=== PATIENT | female | born 1935 | race Caucasian/White ===

== ENCOUNTER 2017-10-24 05:55 | Observation (INO) | payer MEDICARE, OTHER ==
--- NOTE | 2017-10-11 14:48 | NUR ---
PATIENT HERE TODAY FOR PREADMISSION APPOINTMENT. SHE IS SCHEDULED FOR A RIGHT SHOULDER DARIO ARTHROPLASTY ON 10/24/17. AFTER SURGERY SHE IS PLANNING TO GO WITH HER DAUGHTER KARYNA TO [place] FOR RECOVERY AT HER DAUGHTERS HOME. THEY HAVE 4 STEPS INTO THE HOME AND NO STEPS INSIDE THE HOME. THERE IS A WALK IN SHOWER WITH BUILT IN BENCH AND MULTIPLE GRAB BARS IN THE BATHROOM. THIS INFORMATION WILL BE SENT TO DR SCOT RAY AND RI PLANNING FOR FURTHER FOLLOW UP.
--- NOTE | 2017-10-21 16:44 | NUR ---
LAB SODIUM 127 M RY FINAL ASSEMBLY AND PACKING SUPERVISOR CALLED AND PT TO GET LAB REDRAWN. CALL TO PT DAUGHTER AND WILL GET DRAWN TUESDAY AT 1500.
[~2017-10-24] VITALS: Ht 149.9 cm; Wt 54.4 kg
--- OUTSIDE RECORDS SUMMARY | ~2017-10-24 | XMS | Encounter Summary ---
Demographics + + + | Address | [address] | | | [place] [address] | + + + | Home Phone | | + + + | Preferred Language | Unknown | + + + | Marital Status | | + + + | Faith Affiliation | Unknown | + + + | Race | Unknown | + + + | Ethnic Group | Unknown | + + + Author + + + | Author | [facility] | | | and Rhettana | + + + | Organization | [facility] | | | and [place] | + + + | Address | Unknown | + + + | Phone | Unavailable | + + + Support + + +---------+ + | Name | Relationship | Address | Phone | + + +---------+ + | Janice Mccall | ECON | Unknown | | + + +---------+ + | Lynnette Mccall | ECON | Unknown | | + + +---------+ + Care Team Providers + +------+ + | Care Grading Supervisor Name | Role | Phone | + +------+ + | Esau Alvares MD | PCP | Unavailable | + +------+ + Reason for Visit + + + | Reason | Comments | + + + | Pulmonary Disease | 6 mo Follow-up/PFT | | Appointment | | + + + Encounter Details +--------+---------+ + + + | Date | Type | Department | Care Team | Description | +--------+---------+ + + + | 09/02/ | Office | [facility] | Noah Hopper, | Idiopathic pulmonary | | 2018 | Visit | PULMONARY [address] | [place] | fibrosis (HCC) | | | | [place], | [place], [place] | (Primary Dx) | | | | [place] [address] | [place] | | | | | [phone] | [address] | | | | | | | | +--------+---------+ + + + Social History + +-------+ +--------+------+ | Tobacco Use | Types | Packs/Day | Years | Date | | | | | Used | | + +-------+ +--------+------+ | Never Smoker | | | | | + +-------+ +--------+------+ + +---+---+---+ | Smokeless Tobacco: | | | | | Never Used | | | | + +---+---+---+ + + +---------+ + | Alcohol Use | Drinks/We | oz/Week | Comments | | | ek | | | + + +---------+ + | Yes | 7 | 4.2 | 03/04/17: "I have one glass of wine every | | | Glasses | | night" | | | of wine | | | + + +---------+ + + + + | Sex Assigned at | Date Recorded | | | | + + + | Not on file | | + + + as of this encounter Last Filed Vital Signs + + + + | Vital Sign | Reading | Time Taken | + + + + | Blood Pressure | 122/68 | 09/02/20173 PDT | + + + + | Pulse | 65 | 09/02/20173 PDT | + + + + | Temperature | - | - | + + + + | Respiratory Rate | - | - | + + + + | Oxygen Saturation | 98% | 09/02/20171122 PDT | + + + + | Inhaled Oxygen | - | - | | Concentration | | | + + + + | Weight | 57 kg (125 lb 10.6 | 09/02/20171122 PDT | | | oz) | | + + + + | Height | 151.1 cm (4' 11.5") | 09/02/2017 1123 PDT | + + + + | Body Mass Index | 24.96 | 09/02/20173 PDT | + + + + in this encounter Instructions Patient Instructions - Noah Hopper MD - 09/02/2017 1130 PDTFormatting of this note m ay be different from the original. Pulmonary Fibrosis What is pulmonary fibrosis? Pulmonary fibrosis is an interstitial lung disease. Interstitial lung diseasesare agrou p of conditions that cause inflammation and scarring around thetiny air sacs (alveoli) in the lungs. The scarring is called fibrosis. It causes the tissues in the lungs to get thick and stiff. This makes it hard to take in oxygen. Often the cause is unknown. This is called idiopathic pulmonary fibrosis. Normal lung Lung with pulmonary fibrosis What causes pulmonary fibrosis? Most of the time, healthcare providers don t know the cause of pulmonary fibrosis. Things that can increase your risk of getting pulmonary fibrosis are: Smoking Certain viral infections Pollution, such as silica and metal dusts, bacteria, and gases Certain medicines Genetics. More than one family member may have pulmonary fibrosis. Gastroesophageal reflux disease (GERD) What are the symptoms of pulmonary fibrosis? The symptoms of pulmonary fibrosis include: Difficulty breathing or shortness of breath Cough Chest pain Feeling tired Joint pain How is pulmonary fibrosis diagnosed? Your healthcare provider will ask about your health history and current symptoms. He or she will do a physical exam. You may need diagnostic tests, such as a chest X-ray, a CT scan of the lungs, and blood tests. Other tests may include: Lung function tests. These tests find out how well your lungs work. A common test issp irometry. Bronchoalveolar lavage.A bronchoalveolar lavage looks at cells from your lungs. It is done during a bronchoscopy. A brochoscope is a special tool that lets your healthcare provid e see inside your lungs. He or she can also use it to take small samples of tissue for testi ng. Lung biopsy. A small sample of lung tissue is taken and then looked at under a microscop e. A biopsy isdone during bronchoscopy or a surgical procedure. Exercise testing.These tests show how well your lungs work during exercise. How is pulmonary fibrosis treated? Pulmonary fibrosis can t be cured. Treatment can help control the disease and improve sym ptoms. Your healthcare provider will discuss possible treatments with you. These can include : Medicines.These can help reduce inflammation in the lungs. They also can suppress your body s immune system and help lessen scarring. Supplemental oxygen.This can help more oxygen get into your blood. Some people will ne ed to use oxygen all the time. Others will only need it when they sleep or exercise. Breathing techniques.These can help you cope with shortness of breath. Pulmonary rehabilitation.This is a program of exercise and education that can help you gain strength and independence. Date Last Reviewed: 01/08/201619996361-2759 [employer]. [address] [place] [address], [place] [address]. All righ ts reserved. This information is not intended as a substitute for professional medical care. Always follow your healthcare professional's instructions. in this encounter Progress Notes Noah Hopper MD - 09/02/2017 1130 PDTFormatting of this note may be different from th e original. Pulmonary Follow Up 09/02/2017 Magaly Mccall is a 82 y.o. female patient of Esau Alvares MD here today for follow up of pulmonary fibrosis. She notes no new medical issues since our last clinic appointment on 03/04/17. Some lighthe adedness with hot weather. PRN antihypertensive. Follow up PFTs were performed today. Currently Magaly's primary symptom is dyspnea. They do have a chronic cough in the evening. She does not note a change in their cough sin ce our last appointment. she do chronically produce sputum. They have not noted hemoptysi s since our last appointment. Magaly do report symptoms of shortness of breath. Currently Magaly is able to walk couple mi les at their own pace on level ground before developing dyspnea. Water aerobics at the pool and weights QOD. The distance walked is predominately limited by fatigue. Triggers for the ir shortness of breath include vigorous exertion and relieving factors include rest. She do not have symptoms of chest pain. The patient's weight has been stable since our last clinic appointment. Currently Magaly no maico no fever or chills. The patient's reflux symptoms are well controlled with daily omeprazole. Past Medical History Past Medical History: Diagnosis Date Acid reflux disease Anemia longstanding etiology unknown to patient Arthritis Atherosclerosis of aorta (HCC) Cellulitis of foot, left Chronic cough Fatty liver GERD (gastroesophageal reflux disease) Granuloma annulare Hypercholesterolemia diet and exercise Hypertension Idiopathic pulmonary fibrosis (HCC) 03/04/2017 Levoscoliosis Osteoporosis Ovarian carcinoma (HCC) 2014 chemo over 18 weeks Rash resolved Rib fracture 2010 right Whooping cough 1939 Allergies: Allergies Allergen Reactions Celecoxib Rash Penicillins Rash Lisinopril Other (See Comments) Cough Medications: Current Outpatient Prescriptions: alendronate (FOSAMAX) 70 mg tablet, 70 mg every 7 days., Disp: , Rfl: 12 aspirin 81 MG tablet, Aspirin 81 MG TABS TAKE 1 TABLET DAILY. Refills: 0 , CAMPUS AMBASSADOR; Ac tive, Disp: , Rfl: CALCIUM CITRATE-MG CITRATE-D PO, Take 1 capsule by mouth Daily., Disp: , Rfl: docusate sodium (STOOL SOFTENER) 100 mg capsule, Take 100 mg by mouth Daily., Disp: , Rfl: guaifenesin-codeine (TUSSI-ORGANIDIN NR) 100-10 MG/5ML syrup, Guaifenesin-Codeine 100- 10 MG/5ML Oral Syrup TAKE 5 ML EVERY 4 TO 6 HOURS NEEDED FOR COUGH. Quantity: 1; Refill s: 0 Esau Alvares MD; Started 14-Jun-2014 [id number] ML Bottle, Disp: , Rfl: metoprolol succinate (TOPROL-XL) 25 mg 24 hr tablet, Metoprolol Succinate ER 25 MG Ora l Tablet Extended Release 24 Hour TAKE ONE TABLET BY MOUTH EVERY DAY Quantity: 90; Refills : 2 Esau Alvares MD; Started 15-Feb-2008 Active, Disp: , Rfl: Multiple Vitamin (MULTI-VITAMIN) TABS, Multi-Vitamin Oral Tablet TAKE 1 TABLET DAILY. Refills: 0 , CAMPUS AMBASSADOR; Active, Disp: , Rfl: olmesartan (BENICAR) 20 mg tablet, 10mg daily half tablet, Disp: , Rfl: omeprazole (PRILOSEC) 20 mg capsule, Omeprazole 20 MG Oral Capsule Delayed Release JUAN E ONE CAPSULE BY MOUTH EVERY DAY Quantity: 90; Refills: 0 Esau Alvares MD; Started Active, Disp: , Rfl: Immunizations: Immunization History Administered Date(s) Administered INFLUENZA 65 Y OR >, TRIVALENT HIGH-DOSE 11/13/2015, 11/22/2016 PNEUMOCOCCAL CONJUGATE 13-VALENT (PCV13) 12/03/2014 PNEUMOCOCCAL POLYSACCHARIDE 23-VALENT (PPSV23) 03/05/1995, 02/20/2009 TDAP, (ADOL/ADULT) 02/20/2009 ZOSTER, 1 DOSE (ADULT) 01/14/2011 Objective BP 122/68 | Pulse 65 | Ht 1.511 m (4' 11.5") | Wt 57 kg (125 lb 10.6 oz) | SpO2 98% | BMI 24.96 kg/m General Appearance: Alert, cooperative, no distress, appears stated age. Head: Normocephalic, without obvious abnormality, atraumatic. Eyes: PERRL, conjunctiva/corneas clear. Nose: Nares normal, septum midline, mucosa normal, no drainage or sinus tenderness. Throat: Lips, mucosa, and tongue normal; teeth/dentures normal. Neck: Supple, symmetrical, no JVD. Lungs: No accessory muscle use, breath sounds reveal inspiratory crackles left greater th an right 1/[address] way up bilaterally. No wheezes or rhonchi. No dullness to percussion. Chest Wall: No tenderness or deformity. Heart: Regular rate and rhythm, S1, S2 normal, no murmur, rub or gallop. Extremities: Extremities normal, atraumatic, no cyanosis or clubbing. Edema none bilateral ly. Skin: Warm and dry. Lymph nodes: Cervical and supraclavicular nodes normal. Neurologic: Gait normal. Data: Lab Results Component Value Date AST 07/31/2013 Lab Results Component Value Date ALT 07/31/2013 PFTs(s) from 09/02/17 were reviewed today with the patient present. They show forced vital c apacity of 2.53, 126% of predicted with an FEV1/FVC of 76%. The uncorrected DLCO is 12.7, 7 0% of predicted. Walking oximetry performed 09/02/17. Resting O2 saturation was 99%. The patient desaturate d to 89% with walking 750 feet over 3 minutes. Assessment 1. Pulmonary fibrosis consistent with idiopathic pulmonary fibrosis/less likely chemothe rapy related pulmonary fibrosis. Over the last 12 months Magaly reports stable pulmonary sym ptomatology. Today Pulmicort function tests show normal/stable spirometry and improved/mild ly reduced diffusion capacity. Overall the patient's diffusion capacity has increased 13% c ompared to values from 03/04/17. The patient is not experiencing significant reflux symptoms. Magaly is not interested in anti-fibrotic therapy with agents such as Pirfenidone or Ofev. No significant oxygen desaturation. Plan 1. High-dose seasonal influenza vaccination was recommended for November 2017. 2. The interval between pulmonary clinic follow-up appointments will be lengthened to 12 m onths. 3. Spirometry, diffusion capacity and walking oximetry with follow-up. CC: Esau Alvares MDin this encounter Plan of Treatment + +--------+ + + | Name | Priori | Associated Diagnoses | Order Schedule | | | ty | | | + +--------+ + + | Pulmonary function test | GRAC[facility]A | Idiopathic | 1 Occurrences | | | | pulmonary fibrosis | starting 09/02/2017 | | | | (HCC) | until 09/02/2018 | + +--------+ + + as of this encounter Visit Diagnoses + + | Diagnosis | + + | Idiopathic pulmonary fibrosis (HCC) - Primary | + + | Idiopathic pulmonary fibrosis | + +
--- OUTSIDE RECORDS SUMMARY | ~2017-10-24 | XMS | Encounter Summary ---
Demographics + + + | Address | [address] | | | [place] [address] | + + + | Home Phone | | + + + | Preferred Language | Unknown | + + + | Marital Status | | + + + | Spiritism Affiliation | Unknown | + + + | Race | Unknown | + + + | Ethnic Group | Unknown | + + + Author + + + | Author | [facility] | | | and [place] | + + + | Organization | [facility] | | | and [place] | [...] Team Providers + +------+ + | Care Supervisor Net Making Name | Role | Phone | + +------+ + | Esau Alvares MD | PCP | Unavailable | + +------+ + Encounter Details +--------+ + + + + | Date | Type | Department | Care Team | Description | +--------+ + + + + | 07/27/ | Hospital | [facility] | Noah Hopper, | Idiopathic pulmonary | | 2018 | Encounter | MED CTR PULMONARY | [address] | fibrosis (HCC) | | | | FUNCTION [address] | [place], [address] | | | | | [place], | [place], [place] | | | | | [place] [address] | [address] | | | | | [phone] | | | +--------+ + + + + Social History + +-------+ [...] + + + as of this encounter Medications at Time of Discharge + + +-------+---------+ + + | Medication | Sig. | Disp. | Refills | Start | End Date | | | | | | Date | | + + +-------+---------+ + + | alendronate | 70 mg every 7 days. | | 12 | 07/27/19 | | | (FOSAMAX) 70 mg | | | | 17 | | | tablet | | | | | | + + +-------+---------+ + + | aspirin 81 MG | Aspirin 81 MG TABS | | | | | | tablet | TAKE 1 TABLET DAILY. | | | | | | | Refills: 0 | | | | | | | | | | | | | | | | | | | | | , ORCHESTRA DIRECTOR; Active | | | | | + + +-------+---------+ + + | CALCIUM CITRATE-MG | Take 1 capsule by | | | | | | CITRATE-D PO | mouth Daily. | | | | | + + +-------+---------+ + + | docusate sodium | Take 100 mg by mouth | | | | | | (STOOL SOFTENER) 100 | Daily. | | | | | | mg capsule | | | | | | + + +-------+---------+ + + | | Guaifenesin-Codeine | | | 06/15/19 | | | guaifenesin-codeine | 100-10 MG/5ML Oral | | | 15 | | | (TUSSI-ORGANIDIN NR) | SyrupTAKE 5 ML EVERY | | | | | | 100-10 MG/5ML syrup | 4 TO 6 HOURS | | | | | | | NEEDED FOR COUGH. | | | | | | | Quantity: 1; | | | | | | | Refills: 0 Dia, | | | | | | | Esau SMITH; Started | | | | | | | | | | | | | | ML Bottle | | | | | + + +-------+---------+ + + | metoprolol | Metoprolol Succinate | | | 02/14/19 | | | succinate | ER 25 MG Oral | | | 09 | | | (TOPROL-XL) 25 mg 24 | Tablet Extended | | | | | | hr tablet | Release 24 HourTAKE | | | | | | | ONE TABLET BY MOUTH | | | | | | | EVERY DAY Quantity: | | | | | | | 90; Refills: 2 Dia, | | | | | | | Esau SMITH; Started | | | | | | | [id number] | | | | | + + +-------+---------+ + + | Multiple Vitamin | Multi-Vitamin Oral | | | | | | (MULTI-VITAMIN) TABS | TabletTAKE 1 TABLET | | | | | | | DAILY. Refills: 0, | | | | | | | ORCHESTRA DIRECTOR; Active | | | | | | | | | | | | | |, ORCHESTRA DIRECTOR; Active | | | | | + + +-------+---------+ + + | olmesartan | 10mg daily half | | | 02/14/19 | | | (BENICAR) 20 mg | tablet | | | 09 | | | tablet | | | | | | + + +-------+---------+ + + | omeprazole | Omeprazole 20 MG | | | 02/14/19 | | | (PRILOSEC) 20 mg | Oral Capsule Delayed | | | 09 | | | capsule | ReleaseTAKE ONE | | | | | | | CAPSULE BY MOUTH | | | | | | | EVERY DAY Quantity: | | | | | | | 90; Refills: 0 Dia, | | | | | | | Esau SMITH; Started | | | | | | | [id number] | | | | | + + +-------+---------+ + + as of this encounter Plan of Treatment Not on fileas of this encounter Procedures + +--------+ + + + | Procedure Name | Priori | Date/Time | Associated Diagnosis | Comments | | | ty | | | | + +--------+ + + + | PFT PULMONARY | GRACIELA | 09/05/2017 | Idiopathic | Results for this | | FUNCTION TESTING | | 0627 PDT | pulmonary fibrosis | procedure are in the | | ORDERS | | | ([facility]) | results section. | + +--------+ + + + in this encounter Results Pulmonary function test spirometry w/diffusion; home oxygen evaluation (09/05/2017 0627) + + + | Narrative | Performed At | + + + | Noah | | | MD Ward 09/05/2017 6:30 PULMONARY FUNCTION TESTING | | | SPIROMETRY: The FVC was 2.53 L or 126 % of predicted. The FEV1 was | | | 1.91 L or 131 % of predicted. FEV1/FVC ratio was 76 %. DIFFUSION | | | CAPACITY: The diffusion capacity was 12.7 mL/mmHg per minute or 70 % | | | of predicted. IMPRESSION: Spirometry is consistent with normal | | | physiology. Diffusion capacity is mildly reduced and is not corrected | | | for measured hemoglobin. Compared to pulmonary function tests | | | performed 03/04/17 the forced vital capacity has increased 12% and the | | | uncorrected DLCO has increased 13%. Test | | | performed: 09/02/17Electronically signed by: Noah Hopper MD | | | 09/05/2017 6:27[facility] | | |Diffusion capacity is mildly reduced and is not corrected for | | |measured hemoglobin. | | | | | |Compared to pulmonary function tests performed 03/04/17 the forced | | |vital capacity has increased 12% and the uncorrected DLCO has | | |increased 13%. | | | | | |Test performed: 09/02/17 | | |Electronically signed by: Noah Hopper MD 09/05/2017 6:27 | | |[facility] | | + + + in this encounter Visit Diagnoses + + | Diagnosis | + + | Idiopathic pulmonary fibrosis (HCC) | + + | Idiopathic pulmonary fibrosis | + +
--- OUTSIDE RECORDS SUMMARY | ~2017-10-24 | XMS | Clinical Summary ---
Demographics + + + | Address | [address] | | | [place] [address] | + + + | Home Phone | | + + + | Preferred Language | Unknown | + + + | Marital Status | Single | + + + | Yarsanism Affiliation | Unknown | + + + | Race | Unknown | + + + | Ethnic Group | Other Race | + + + Author + + + | Author | [facility] | + + + | Organization | [facility] | + + + | Address | Unknown | + + + | Phone | Unavailable | + + + Care Team Providers + +------+ + | Care Job Printer Apprentice Name | Role | Phone | + +------+ + PP | Unavailable | + +------+ + Source Comments JORGE is fully live on both [facility] Ambulatory and [facility] InPatient.[facility] Allergies Not on File Current Medications Not on file Active Problems Not on file Social History + +-------+ +--------+------+ | Tobacco Use | Types | Packs/Day | Years | Date | | | | | Used | | + +-------+ +--------+------+ | Never Assessed | | | | | + +-------+ +--------+------+ + + + | Sex Assigned at | Date Recorded | | | | + + + | Not on file | | + + + Plan of Treatment + + + + + | Health Maintenance | Due Date | Last Done | Comments | + + + + + | Pneumococcal (Adult) | | | | | (1 of 2 - PCV13) | 0 | | | + + + + + | INFLUENZA VACCINE | | | | | (FLU SHOT) | 8 | | | + + + + + Results Not on filefrom Last 3 Months Insurance + +--------+ +--------+ + + | Payer | Benefi | Subscriber | Type | Phone | Address | | | t Plan | ID | | | | | | / | | | | | | | Group | | | | | + +--------+ +--------+ + + | MEDICARE | MEDICA | xxxxxxxxxx | Medica | +1- | [address] | | | RE A & | | re | [phone] | [place] [address] | | | B | | | | | + +--------+ +--------+ + + | MODA | MODA | xxxxxxxxx | PPO | +1- | [address] [address] | | | [place] | | | [phone] | [place] [address] | | | [place] | | | | | + +--------+ +--------+ + + + +--------+ +--------+ + + | Guarantor Name | Accoun | Relation to | Date | Phone | Billing Address | | | t Type | Patient | of | | | | | | | | | | + +--------+ +--------+ + + | FLASH PÉREZ | Person | Self [birth year] | Home: | [address] | | | al/Fam | | 1935 | [phone] | [place] [address] | | | ladan | | | [phone] | | + +--------+ +--------+ + +"
--- OUTSIDE RECORDS SUMMARY | ~2017-10-24 | XMS | Clinical Summary ---
Demographics + + + | Address | [address] | | | [place] [address] | + + + | Home Phone | | + + + | Preferred Language | Unknown | + + + | Marital Status | | + + + | Confucianist Affiliation | Unknown | + + + | Race | Unknown | + + + | Ethnic Group | Unknown | + + + Author + + + | Author | [facility] | | | and [place] | + + + | Organization | [facility] | | | and [place] | + + + | Address | Unknown | + + + | Phone | Unavailable | + + + Support + + +---------+ + | Name | Relationship | Address | Phone | + + +---------+ + | Janice Pérez | ECON | Unknown | | + + +---------+ + | Lynnette Pérez | ECON | Unknown | | + + +---------+ + Care Team Providers + +------+ + | Care Beverage Manager Name | Role | Phone | + +------+ + | Esau Alvares MD | PP | Unavailable | + +------+ + Allergies + + + + + + | Active Allergy | Reactions | Severity | Noted | Comments | | | | | Date | | + + + + + + | Celecoxib | Rash | High | 08/04/19 | | | | | | 17 | | + + + + + + | Lisinopril | Other (See Comments) | Low | | Cough | + + + + + + | Penicillins | Rash | High | 07/26/19 | | | | | | 14 | | + + + + + + Current Medications + + +-------+---------+------+------+-------+ | Prescription | Sig. | Disp. | Refills | Star | End | Statu | | | | | | t | Date | s | | | | | | Date | | | + + +-------+---------+------+------+-------+ | aspirin 81 MG | Aspirin 81 MG TABS | | | | | Activ | | tablet | TAKE 1 TABLET DAILY. | | | | | e | | | Refills: 0 | | | | | | | | | | | | | | | | | | | | | | | | , TILTROTOR CREW CHIEF; Active | | | | | | + + +-------+---------+------+------+-------+ | olmesartan | 10mg daily half | | | 01/0 | | Activ | | (BENICAR) 20 mg | tablet | | | 09/26 | | e | | tablet | | | | 09 | | | + + +-------+---------+------+------+-------+ | | Guaifenesin-Codeine | | | 05/0 | | Activ | | guaifenesin-codeine | 100-10 MG/5ML Oral | | | 820 | | e | | (TUSSI-ORGANIDIN NR) | SyrupTAKE 5 ML EVERY | | | 15 | | | | 100-10 MG/5ML syrup [...] ML Bottle | | | | | | + + +-------+---------+------+------+-------+ | metoprolol | Metoprolol Succinate | | | /0 | | Activ | | succinate | ER 25 MG Oral | | | 09/26 | | e | | (TOPROL-XL) 25 mg 24 | Tablet Extended | | | 09 | | | | hr tablet | Release 24 HourTAKE | | | | | | | | ONE TABLET BY MOUTH | | | | | | | | EVERY DAY Quantity: | | | | | | | | 90; Refills: 2 Alvares, | | | | | | | | Esau SMITH; Started | | | | | | | | [id number] | | | | | | + + +-------+---------+------+------+-------+ | Multiple Vitamin | Multi-Vitamin Oral | | | | | Activ | | (MULTI-VITAMIN) TABS | TabletTAKE 1 TABLET | | | | | e | | | DAILY. Refills: 0, | | | | | | | | TILTROTOR CREW CHIEF; Active | | | | | | | | | | | | | | | |, TILTROTOR CREW CHIEF; Active | | | | | | + + +-------+---------+------+------+-------+ | omeprazole | Omeprazole 20 MG | | | / | | Activ | | (PRILOSEC) 20 mg | Oral Capsule Delayed | | | 09/26 | | e | | capsule | ReleaseTAKE ONE | | | 09 | | | | | CAPSULE BY MOUTH | | | | | | | | EVERY DAY Quantity: | | | | | | | | 90; Refills: 0 Dia, | | | | | | | | Esau SMITH; Started | | | | | | | | [id number] | | | | | | + + +-------+---------+------+------+-------+ | alendronate | 70 mg every 7 days. | | 12 | 07/08 | | Activ | | (FOSAMAX) 70 mg | | | | 10/27 | | e | | tablet | | | | 17 | | | + + +-------+---------+------+------+-------+ | docusate sodium | Take 100 mg by mouth | | | | | Activ | | (STOOL SOFTENER) 100 | Daily. | | | | | e | | mg capsule | | | | | | | + + +-------+---------+------+------+-------+ | CALCIUM CITRATE-MG | Take 1 capsule by | | | | | Activ | | CITRATE-D PO | mouth Daily. | | | | | e | + + +-------+---------+------+------+-------+ Active Problems + + + | Problem | Noted Date | + + + | Idiopathic pulmonary fibrosis (HCC) | 03/04/2017 | + + + | Ovarian cancer (HCC) | 07/25/2013 | + + + + + | Overview: ACTIVE DIAGNOSIS: Stage IIIC Ovarian Cancer1. | | Presentation with a palpable left inguinal lymph node on February | | 2013. Screening colonoscopy excluded any evidence of anal | | cancer.2. Surgical excision of the palpable left inguinal lymph | | node by Dr. Brenton Contreras on February 20, 2013 demonstrated | | metastatic adenocarcinoma positive for estrogen receptor, | | positive for CK 7, favoring endometrial or ovarian primary.3. PET | | scan on March 09, 2013 demonstrated a single hypermetabolic | | nodule in the left pelvic sidewall with an SUV of 7.3 associated | | with a 1.3 cm x 1.7 cm soft tissue density there, but no other | | evidence of metastatic disease.4. Status post staging laparotomy | | including total abdominal hysterectomy and bilateral | | salpingo-oophorectomy, pelvic lymph node dissection including | | aortocaval lymph nodes, common iliac lymph nodes, and obturator | | lymph nodes on the left, and aspiration of pelvic fluid for | | cytology by Dr. Brenton Contreras. Pathological specimen [id number] | | was analyzed by Dr. Rupa Tripp of [facility] | | was notable for the fact that there was a 1.2 cm x 1.0 cm x 0.7 | | cm soft tissue nodule in the pelvis that was "positive for | | metastatic adenocarcinoma." However, the uterus, bilateral | | fallopian tubes, and ovaries were all negative for primary | | disease. In addition, a total of 16 lymph nodes were all | | analyzed; all of which were negative for any other evidence of | | metastatic disease.5. Aspiration of the pelvic fluid specimen | | number [id number] was analyzed separately by Dr. Gómez Hunter | | of [facility] was positive for small clumps of | | glandular cells highly suspicious for adenocarcinoma.6. | | Initiation of dose dense Taxol carboplatin chemotherapy May 09 | | 2013. Last Assessment & Plan: The patient returned to clinic | | on July 31, 2013 to begin cycle #5 of dose dense Taxol and | | carboplatin chemotherapy for stage IIIc ovarian cancer. The | | interval history is notable for the fact that Magaly had a ingrown | | hair on the suprapubic area in the left lower abdomen that was | | chronically getting infected with each chemotherapy cycle | | completely excised by Dr. Brenton Contreras on July 25, 2013. | | Pathological specimen [id number] was analyzed by Dr. Mcmillan | | Abiodun of [facility] as a "morphological features | | compatible with a ruptured epidermal inclusion cyst. 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 We'll proceed with initiation of cycle #5 of dose dense | | Taxol and carboplatin chemotherapy. She'll return to see me in | | one week in [facility] for cycle 5 day 8 of Taxol with | | Aranesp for growth factor support. | + + Encounters +--------+ + + + + | Date | Type | Specialty | Care Team | Description | +--------+ + + + + | 09/02/ | Office | | Noah Hopper, | Idiopathic pulmonary | | 2018 | Visit | | MD | fibrosis (HCC) | | | | | | (Primary Dx) | +--------+ + + + + | 09/02/ | Hospital | | Noah Hopper, | Idiopathic pulmonary | | 2018 | Encounter | | MD | fibrosis (HCC) | +--------+ + + + + from Last 3 Months Immunizations + + + + | Name | Dates Previously Given | Next Due | + + + + | INFLUENZA 65 Y OR >, | 11/22/2016, 11/13/2015 | | | TRIVALENT HIGH-DOSE | | | + + + + | PNEUMOCOCCAL | 12/03/2014 | | | CONJUGATE 13-VALENT | | | | (PCV13) | | | + + + + | PNEUMOCOCCAL | 02/20/2009, 03/05/1995 | | | POLYSACCHARIDE | | | | 23-VALENT (PPSV23) | | | + + + + | TDAP, (ADOL/ADULT) | 02/20/2009 | | + + + + | ZOSTER, 1 DOSE | 01/14/2011 | | | (ADULT) | | | + + + + Family History + + +------+ + | Medical History | Relation | Name | Comments | + + +------+ + | Stillborn | Brother | | | + + +------+ + | Heart attack | Father | | | + + +------+ + | Atrial Fibrillation | Mother | | | + + +------+ + | Heart attack | Mother | | | + + +------+ + | Hypertension | Mother | | | + + +------+ + | Renal Failure | Mother | | | + + +------+ + | Colon cancer | Sister | | | + + +------+ + + +------+ + + | Relation | Name | Status | Comments | + +------+ + + | Brother | | | | + +------+ + + | Father | | | | + +------+ + + | Mother | | | | + +------+ + + | Sister | | | | + +------+ + + Social History + +-------+ +--------+------+ | Tobacco Use | Types | Packs/Day | Years | Date | | | | | Used | | + +-------+ +--------+------+ | Never Smoker | | | | | + +-------+ +--------+------+ + +---+---+---+ | Smokeless Tobacco: | | | | | Never Used | | | | + +---+---+---+ + + | Tobacco Cessation: Counseling Given: No | + + + + +---------+ + | Alcohol Use [...] on file | | + + + Last Filed Vital Signs + + + + | Vital Sign | Reading | Time Taken | + + + + | Blood Pressure | 122/68 | 09/02/20173 PDT | + + + + | Pulse | 65 | 09/02/2017 1123 PDT | + + + + | Temperature | 36.3 C (97.3 F) | 07/31/2013 0805 PDT | + + + + | Respiratory Rate | 16 | 07/31/2013 0805 PDT | + + + + | Oxygen [...] Height | 151.1 cm (4' 11.5") | 09/02/20171122 PDT | + + + + | Body Mass Index | 24.96 | 09/02/20171122 PDT | + + + + Plan of Treatment + + + + + | Health Maintenance | Due Date | Last Done | Comments | + + + + + | Vaccine: Zoster (2 | | 01/14/2011 | | | of 3) | 2 | | | + + + + + | Statin Therapy | | | | | (optimal intensity) | 5 | | | + + + + + | Vaccine: Influenza | | 11/22/2016, 11/13/2015 | | | (#1) | 8 | | | + + + + + | Vaccine: | | 02/20/2009 | | | Dtap/Tdap/Td (2 - | 0 | | | | Td) | | | | + + + + + | Vaccine: | Completed | 12/03/2014, 02/20/2009, | | | Pneumococcal 65+ | | 03/05/1995 | | | High/Highest Risk | | | | + + + + + Procedures + +--------+ + + + | [...] the | | ORDERS | | | ([facility]) | results section. | + +--------+ + + + from Last 3 Months Results Pulmonary function test spirometry w/diffusion; home [...] Noah Hopper MD | | | 09/05/2017 6:27[facility] | | |Diffusion capacity is mildly reduced [...] Noah Hopper MD 09/05/2017 6:27 | | |[facility] | | + + + from Last 3 Months Insurance + +--------+ +--------+ + + | Payer | Benefi | Subscriber | Type | Phone | Address | | | t Plan | ID | | | | | | / | | | | | | | Group | | | | | + +--------+ +--------+ + + | MEDICARE | MEDICA | [id number] | Medica | [phone] | | | | RE | | re | [phone] | | | | PART A | | | | | | | AND B | | | | | + +--------+ +--------+ + + | MODA | MODA | [id number] | Indemn | [phone] [address] [address] | | | HEALTH | | ity | [phone] | [place] [address] | | | MDCR | | | | | | | SUPPL | | | | | + +--------+ +--------+ + + + +--------+ +--------+ + + | Guarantor Name | Accoun | Relation to | Date | Phone | Billing Address | | | t Type | Patient | of | | | | | | | | | | + +--------+ +--------+ + + | MAGALY PÉREZ | Person | Self [birth year] | Home: | [address] | | [place] | al/Fam | | 1935 | [phone] | [place] [address] | | | ladan | | | [phone] | | + +--------+ +--------+ + +
--- OUTSIDE RECORDS SUMMARY | ~2017-10-24 | XMS | Clinical Summary ---
Demographics + + + | Address | [address] | | | [place] [address] | + + + | Home Phone | | + + + | Preferred Language | Unknown | + + + | Marital Status | Single | + + + | Taoist Affiliation | Unknown | + + + | Race | Unknown | + + + | Ethnic Group | Other Race | + + + Author + + + | Author | [facility] | + + + | Organization | [facility] | + + + | Address | Unknown | + + + | Phone | Unavailable | + + + Care Team Providers + +------+ + | Care Cigar Making Supervisor Name | Role | Phone | + +------+ + PP | Unavailable | + +------+ + Source Comments JORGE is fully live on both [facility] Ambulatory and [facility] InPatient.[facility] Allergies Not on File Current Medications Not [...] | re | [phone] | [place] [address] | | | B | | | | | + +--------+ +--------+ + + | MODA | MODA | [phone] | PPO | [phone]- | [address] [address] | | | [place] | | | [phone] | [place] [address] | | | [place] | | | [...] Self | [birth year] | Home: | [address] | | | al/Fam | | 1935 | [phone] | [place] [address] | | | ladan | | | [phone] | | + +--------+ +--------+ + +"
--- OUTSIDE RECORDS SUMMARY | ~2017-10-24 | XMS | Encounter Summary ---
Demographics + + + | Address | [address] | | | [place] [address] | + + + | Home Phone | | + + + | Preferred Language | Unknown | + + + | Marital Status | | + + + | Tenriism Affiliation | Unknown | + + + | Race | Unknown | + + + | Ethnic Group | Unknown | + + + Author + + + | Author | [facility] | | | and [place] | + + + | Organization | [facility] | | | and [place] [...] Team Providers + +------+ + | Care Tearoom Hostess Name | Role | Phone | + +------+ + | Esau Alvares MD | PCP | Unavailable | + +------+ + Encounter Details +--------+ + + + + | Date | Type | Department | Care Team | Description | +--------+ + + + + | 07/27/ | Hospital | [facility] | Noah Hopper, | Idiopathic pulmonary | | 2018 | Encounter | MED CTR PULMONARY | [address] | fibrosis (HCC) | | | | FUNCTION [address] | [place], [address] | | | | | [place], | [place], [place] | | | | | [place] [address] | [address] | | | | | [phone] | | | +--------+ + + + [...] | | | | | | , 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 Refills: 0, | | | | | | | CUT OFF WORKER; Active | | | | | | | | | | | | | |, CUT OFF WORKER; Active | | | | | + [...] | | | | | | | [id number] | | | | | + + [...] the | | ORDERS | | | ([facility]) | results section. | + +--------+ + [...] Noah Hopper MD | | | 09/05/2017 6:27[facility] | | |Diffusion capacity is [...] Noah Hopper MD 09/05/2017 6:27 | | |[facility] | | + + + in this encounter Visit Diagnoses + + | Diagnosis | + + | Idiopathic pulmonary fibrosis (HCC) | + + | Idiopathic pulmonary fibrosis | + +
--- OUTSIDE RECORDS SUMMARY | ~2017-10-24 | XMS | Encounter Summary ---
Demographics + + + | Address | [address] | | | [place] [address] | + + + | Home Phone | | + + + | Preferred Language | Unknown | + + + | Marital Status | | + + + | Anabaptism Affiliation | Unknown | + + + | Race | Unknown | + + + | Ethnic Group | Unknown | + + + Author + + + | Author | [facility] | | | and [place] | + + + | Organization | [facility] | | | and [place] | [...] Team Providers + +------+ + | Care Laborer Steel Handling Name | Role | Phone | + [...] + + | 09/02/ | Office | [facility] | Noah Hopper, | Idiopathic pulmonary | | 2018 | Visit | PULMONARY [address] | [place] | fibrosis (HCC) | | | | [place], | [place], [place] | (Primary Dx) | | | | [place] [address] | [place] | | | | | [phone] | [address] | | | | | | | [...] gain strength and independence. Date Last Reviewed: 01/08/[id number] The [employer]. [address] [place] [address], [place] [address]. All righ ts reserved. This information is [...] TAKE 1 TABLET DAILY. 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
--- OUTSIDE RECORDS SUMMARY | ~2017-10-24 | XMS | Clinical Summary ---
Demographics + + + | Address | [address] | | | [place] [address] | + + + | Home Phone | | + + + | Preferred Language | Unknown | + + + | Marital Status | | + + + | Samaritan Affiliation | Unknown | + + + | Race | Unknown | + + + | Ethnic Group | Unknown | + + + Author + + + | Author | [facility] | | | and [place] | + + + | Organization | [facility] | | | and [place] [...] Team Providers + +------+ + | Care Thread Twister Name | Role | Phone | + [...] | | | | | | , 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 Refills: 0, | | | | | | | | KILN MECHANIC; Active | | | | | | | | | | | | | | | |, KILN MECHANIC; Active | | | | | | [...] | | | | | | | 3-[id number] | | | | | | + [...] cytology by Dr. Brenton Contreras. Pathological specimen [id number] | | was analyzed by Dr. Rupa Tripp of [facility] | | was notable for the [...] the pelvic fluid specimen | | number [id number] was analyzed separately by Dr. Gómez Hunter | | of [facility] was positive for small clumps of [...] July 25, 2013. | | Pathological specimen [id number] was analyzed by Dr. Mmcillan | | Abiodun of [facility] as a "morphological features | | [...] me in | | one week in [facility] for cycle 5 day 8 of Taxol [...] Hopper MD | | | 09/05/2017 6:27[facility] | | |Diffusion capacity is mildly [...] Hopper MD 09/05/2017 6:27 | | |[facility] | | + + + from [...] + + | MEDICARE | MEDICA | [id number] | Medica | [phone] | | | | RE | | re | [phone] | | | | PART A | | | | | | | AND B | | | | | + +--------+ +--------+ + + | MODA | MODA | [id number] | Indemn | [phone] | [address] [address] | | | HEALTH | | ity | [phone] | [place] [address] | | | MDCR | | | [...] | 1935 | [phone] | [place] [address] | | | [place]an | | | [address] | | + +--------+ +--------+ + +
[~2017-10-24 05:55] MED LIST: ADULT LOW DOSE81 MG PO; ALENDRONATE SOD70 MG PO; AMLODIPINE BES2.5 MG PO; BENICAR20 MG PO; CALCIUM 600 +1 EA17 PO; CALCIUM500 MG PO; DILAUDID4 MG PO; FOSAMAX70 MG PO; GLUCOSAMINE CO1 EAC1 PO; GLUCOSAMINE H1500 MG PO; METOPROLOL SUC100 MG PO; MULTIVITAMINS1 EAC7 PO; OMEPRAZOLE20 MG PO; PERCOCET 7.5-31 EACH PO; SIMVASTATIN40 MG PO; TOPROL XL25 MG PO
--- NOTE | 2017-10-24 09:51 | NUR ---
PT RESTING, DAUGHTER BY HER SIDE. DR ELLISON HAD BEEN BY AND SHE WAS PREPPED AND READY FOR SURGERY. VERY PLEASANT VISIT, EXTENDED A BLESSING, WILL FOLLOW NEEDED
--- NOTE | 2017-10-24 09:54 | NUR ---
[facility] AWAKE WITH NO C/O'S. 0845 CRYO CUFF PLACED ON R SHOULDER. SNAP VAC ON R SHOULDER PRESENT ON ARRIVAL. 0851 OXYGEN REMOVED. SATS 98% ON RA. NO C/O'S. MOVING FINGERS ON R HAND, ARM STILL NUMB. 0933 TO ROOM 114. REPORT GIVEN TO ERIK OWUSU.
--- NOTE | 2017-10-24 09:58 | NUR ---
PT TO FLOOR, TO ROOM 114 AT 0933 VIA BED, ACCOMPANIED BY ERIK SIDHU. RECIEVED BEDSIDE REPORT FROM ERIK SIDHU. PT'S FAMILY AT BEDSIDE. PT AWAKE, DROWSY, BUT ORIENTED X 4. DENIES PAIN. PT ABLE TO MOVE FINGERS ON RIGHT HAND, UNABLE TO MOVE ARM THUS FAR. DRESSING TO RIGHT SHOULDER C/D/I. SNAP DRESSING REINFORCED WITH OP SITE TO UPPER PORTION OF DRESSING, SNAP DRESSING HAD AN AIR LEAK, AND SNAP CARTRAIGE WOULD NOT STAY IN GREEN, CONTINUED GOING TO RED. THUS FAR, NO FURTHER EVIDENCE OF AIR LEAK,
--- NOTE | 2017-10-24 11:40 | NUR ---
PT SLEEPING SOUNDLY. NO S/S DISTRESS OR DISCOMFORT. FAMILY MEMBER AT BEDSIDE. CRYO CUFF TO RIGHT SHOULDER, SNAP DEVICE SHOWING GREEN. VSS.
--- NOTE | 2017-10-24 12:07 | NUR ---
PT IN BED, HOB ELEVATED, PT SLEEPING SOUNDLY, NO S/S DISTRESS OR DISCOMFORT. PER CONTINUOUS PULSE OX, SATURATION LEVEL 98%. PT ON RA. PERSONAL SUPPLIES AND CALL LIGHT IN REACH. FAMILY MEMBER AT BEDSIDE. SNAP DEVICE LEVEL IN GREEN ZONE.
--- NOTE | 2017-10-24 14:33 | NUR ---
CHECKED ON PT IN HER RM. SHE IS ASLEEP, BUT LOTS OF FAMILY PRESENT. SHORT VISIT WITH THEM, THEY FEEL SHE IS DOING WELL COULD BE EXPECTED. FAMILY WILL TELL PT I WAS BY, WILL FOLLOW NEEDED
--- NOTE | 2017-10-24 14:37 | NUR ---
PT INCONTINENT OF URINE. UP TO BATHROOM WITH THIS RN AND PHYSICAL THERAPIST, TWAN. PT VOIDED IN TOILET, MISSED HAT, EXCEPT FOR 50 CC URINE. PT THEN ASSISTED IN CHANGING CLOTHING, BRII HOSE, AND SOCKS. ASSISTED PT IN PUTTING ON A PULL ON ATTENDS. PT THEN AMBULATED BACK TO BED WITH 1 PERSON ASSIST. PT HAS A SMALL SIZED SLING ON RUE. THIS WAS PLACED BY PHYSICAL THERAPIST.
--- NOTE | 2017-10-24 16:48 | NUR ---
MED REC COMPLETE
--- NOTE | 2017-10-24 17:40 | NUR ---
PT PULSE OX ALARMING, THIS RN TO ROOM. PULSE OX NOT READING. PULSE OX RESET. O2 SATURATION AT 96% ON ROOM AIR. PT ASSISTED UP TO REST ROOM AND BACK TO BED WITHOUT ISSUE. FAMILY AT BEDSIDE. CALL LIGHT WITHIN REACH. CRYO CUFF, FOOT PUMPS IN PLACE.
--- NOTE | 2017-10-24 17:52 | NUR ---
PT TO FLOOR FROM PACU THIS AM FOLLOWING RIGHT SHOULDER HEMIARTHROPLASTY. PT HAS SNAP NEGATIVE PRESSURE WOUND THERAPY DRESSING, WITH DEVICE CONNECTED BY TUBE TO WOUND. FOAM DRESSING FROM THIS PRESENT UNDER OPSITES, LOWER 1/2 INCH OF DRESSING HAS SEROSANGUAINOUS DRAINAGE PRESENT. PT WEARING SLING TO RUE, PLACED BY PHYSICAL THERAPY. PT HAS D5NS WITH 20 MEQ KCL INFUSING AT 125 ML/HR. PT TOLERATED CLEAR LIQUIDS, ADVANCED TO REGULAR DIET, TOLERATING WELL THUS FAR. PT INCONTINENT OF URINE ONCE, THEN UP TO BATHROOM TO VOID. NO BM THIS SHIFT, LAST BM 10/23/17 PER PT REPORT. CIRCULATION TO RUE WNL, RADIAL PULSE STRONG, CAPILARY REFILL LESS THAN 3 SECONDS, PT ABLE TO MOVE RUE AT ELBOW, WRIST, AND MOVE HAND AND FINGERS. PT INSTRUCTED BY PHYSICAL THERAPY TO NOT ATTEMPT TO MOVE RIGHT SHOULDER/UPPER ARM. PT UP WITH 1 PERSON MINIMAL ASSIST. PT HAS DENIED PAIN THUS FAR.
--- NOTE | 2017-10-24 18:16 | NUR ---
DR. PALOMO IN TO SEE PT. DISCUSSED HOME MEDICATIONS, HEALTH HISTORY, ASSESSED PT.
--- NOTE | 2017-10-24 19:16 | NUR ---
in to see patient. pt resting supine in bed, eyes closed and respirations evena dn unlabored at 14. pt appears to be sleeping comfortably. shoulder immobalizer in place to right arm. polar ice in place. SNAP 125 vac showing 17mmhg at this time. pt is alert to voice and states she doesn't have any pain and that she feels comfortable. Cap refill <2 seconds to right hand. call light and h20 in reach. pt denies needs and no concerns voiced.
--- NOTE | 2017-10-24 22:00 | NUR ---
ROUNDED CHARGE. PATIENT IS RESTING IN BED. RN IN ROOM. PATIENT DENIES ANY COMMENTS, QUESTIONS, OR CONCERNS. NO NEEDS NOTED. CALL LIGHT IN REACH.
--- NOTE | 2017-10-24 23:42 | NUR ---
PT RESTING IN BED EYES CLOSED AND RESPIRATIONS EVEN AND UNLABORED. PT APPEARS TO BE SLEEPING COMFORTABLY. CALL LIGHT AND H20 IN REACH.
--- NOTE | 2017-10-25 02:16 | NUR ---
1PA TO THE BATHROOM. REFILLED CRYO CUFF AND ICE WATER. SCD, HEEL PROTECTOR AND CRYO CUFF ARE BACK ON. SIDE TABLE AND CALL LIGHT WITHIN REACH.
--- NOTE | 2017-10-25 02:45 | NUR ---
PT RESTING IN BED, EYES CLSOED AND RESPIRATIONS EVEN AND UNLABORED. PT APPEARS TO BE SLEEPING COMFORTABLY AND IS ALERT TO VOICE. ASSESSMENT COMPLETED. PT DENIES PAIN. DSG CDI TO RIGHT SHOULDER, CRYO CUFF IN PLACE, CMS INTACT TO RIGHT HAND. SNAP WOUND THERAPY IN PLACE AND READS 30 MMHG. CALL LIGHT AND H20 IN REACH.
--- NOTE | 2017-10-25 04:35 | NUR ---
Pt resting supine in bed, eyes closed and respirations even and unlabored. cryocuff in place to right shoulder, with snap system in place. delfina hose and scd's in place. pt appears to be sleeping comfortabaly. call light and h20 in reach.
--- NOTE | 2017-10-25 05:17 | NUR ---
PT APPEARED TO HAVE SLEPT WELL THROUGH MAJORITY OF THE NIGHT. PT DENIED PAIN. PT TOLORATED RIGHT SHOULDER IMMOBILIZER WELL THROUGH THIS SHIFT. THE SNAP WOUND THERAPY SYSTEM REMAINS IN PLACE WITH 30MMHG. PT TOLORATED BRII HOSE AND SCD'S WELL. PT DID HAVE A TENDANCY TO BECOME CHILLED WITH CRYOCUFF SO WAS PROVIDED WITH WARM BLANKETS FREQUENTLY THROUGH THE NIGHT. LR CONTINUED TO INFUSE TO LEFT FA IV AT 75ML/HR WITH Q8HR IV ANCEF.
--- NOTE | 2017-10-25 07:00 | NUR ---
REPORT RECEIVED FROM CATALOG LIBRARIAN RN AT BEDSIDE. PATIENT SLEEPING IN BED, RESPIRATIONS EVEN AND UNLABORED. LR INFUSING AT 75 MLS/HR. BRII HOSE IN PLACE. CALL LIGHT WITHIN REACH.
--- NOTE | 2017-10-25 07:59 | NUR ---
MORNING ASSESSMENT AND ROUTINE MEDICATIONS COMPLETE. PATEINT DENIES PAIN AT THIS TIME. PATEINT UP TO VOID, ONE PERSON ASSIST. PATIENT AMBULATED TO CHAIR, VISITING WITH DR ELLISON. CALL LIGHT WITHIN REACH.
--- NOTE | 2017-10-25 08:12 | OR ---
[facility] [address] [place], [place] [address] Signed DATE OF OPERATION: 10/24/2017 SURGEON: Taty Hunter MD PREOPERATIVE DIAGNOSIS: Glenohumeral arthritis, right shoulder. POSTOPERATIVE DIAGNOSIS: Glenohumeral arthritis, right shoulder. PROCEDURE PERFORMED: Right shoulder hemiarthroplasty. PICK UP OPERATOR: Sofia Wilson PA-C. Sofia was present in critical positioning, retraction, and wound closure. ANESTHESIA: General with interscalene block. BLOOD LOSS: 150 mL. IMPLANTS: Nidhi size 12 stem with a 44 x 19 head. BRIEF HISTORY: Flash is an 82-year-old female with progressive worsening of osteoarthritis, nonoperative means were not managing her pain and she wished to proceed with operative intervention. DESCRIPTION OF PROCEDURE: Once medical clearance was obtained, she was scheduled for surgery. Once consent was obtained, she was taken to the operating room, placed in a low beach chair position. All downside pressure points well padded. Satisfactory general endotracheal intubation was obtained. The shoulder was then positioned and prepped and draped in a standard sterile fashion. Standard deltopectoral approach was taken through skin and subcutaneous tissue. The cephalic vein was identified and mobilized laterally. The deltoid was then elevated and the subdeltoid bursa was removed. The conjoined tendon was then mobilized medially with care taken to protect the underlying nerve. The biceps Electronically Signed By: TATY HUNTER MD 10/25/17 0812 PATIENT NAME: STAEBFLASH DEGROOT OPERATIVE REPORT DATE OF : 35 REPORT #: [id number] PHYSICIAN: TATY HUNTER MD PCP: JARRETT SOL MD REPORT IS CONFIDENTIAL AND NOT TO BE RELEASED WITHOUT AUTHORIZATION [facility] [address] [place], [place] [address] Signed tendon groove was then identified and incised. The biceps tendon was long absent. The rotator cuff interval was then split up to the level of the base of the glenoid. The subscapularis was then mobilized and taken with a small wafer of bone and #2 FiberWire sutures were placed through, it was then medialized. The superior rotator cuff was mobilized, but not detached from the tuberosity. The shoulder was externally rotated and dislocated. The supraspinatus of the humerus was then identified and the the humeral shaft, this was then sequentially reamed up to a 12 and found to be satisfactorily fitting. The 12 was left in position. The cutting jig was then put on the IM jam and aligned with the forearm setting 25-degrees of retroversion. The humeral cut was then made and the jam was removed. It was then finished using the 1-inch osteotome. The bone was then passed off the table. The osteophytes inferiorly, posterior, anteriorly were then removed. The two drill holes were then placed in the anterior humerus and passing sutures were placed. The humerus was then broached up to 12 and 12 was left in position. A 44 x 19 eccentric head was then selected and placed on the stem, it was rotated until excellent coverage. The shoulder was then reduced posterior subluxation. She was able to reach her opposite shoulder quite easily. The shoulder had good stability. The shoulder was once again dislocated and the trials were removed. The final stem was then impacted until it was about 1 cm proud. The final humeral head was then positioned on the stem and rotated until adequate coverage. It was then impacted until it was well seated and flushed with the bone cut. The shoulder again was reduced, taken through range of motion as noted above, found to be satisfactory. The shoulder was copiously with antibiotic solution. The periarticular soft tissues were injected with 60 mL ropivacaine Toradol mixture. The subscapularis was then returned back to its [place] position and repaired through drill holes in the proximal humerus. The rotator cuff interval was closed loosely and once again, the wound was irrigated. The deltopectoral interval was closed using #1 Vicryl, dunking the vein. The subcutaneous tissue with 0 Stratafix, and skin with petr. She was placed in a SNaP vacuum dressing, and taken to recovery room in satisfactory condition. All sponge, needle, and instrument counts were correct. Taty Hunter MD BA/MODL /[id number] Electronically Signed By: TATY HUNTER MD 10/25/17811 PATIENT NAME: FLASH PÉREZ OPERATIVE REPORT DATE OF : 35 REPORT #: [id number] PHYSICIAN: TATY HUNTER MD PCP: JARRETT SOL MD REPORT IS CONFIDENTIAL AND NOT TO BE RELEASED WITHOUT AUTHORIZATION [address] [address] Signed Copies: ~ Electronically Signed By: TATY HUNTER MD 10/25/17 0812 PATIENT NAME: FLASH PÉREZ OPERATIVE REPORT DATE OF : 35 REPORT #: [id number] PHYSICIAN: TATY HUNTER MD PCP: JARRETT SOL MD REPORT IS CONFIDENTIAL AND NOT TO BE RELEASED WITHOUT AUTHORIZATION
[2017-10-25] MEDS ORDERED: NEURONTIN300 MG PO (08:28)
[2017-10-25] MEDS ORDERED: HYDROCODON-ACE1 EA11 PO (08:28)
[2017-10-25] MEDS ORDERED: DICLOFENAC SODI75 MG PO (08:28)
[2017-10-25] MEDS ORDERED: DOCUSATE SODIU250 MG PO (08:29)
--- NOTE | 2017-10-25 08:55 | NUR ---
PATIENT SITING UP IN BED. FACE AND HANDS CLEANED. CALL LIGHT WITHIN REACH. NO MORE NEEDS AT THIS TIME.
--- NOTE | 2017-10-25 09:08 | NUR ---
PATIENT SITTING UP IN CHAIR. HANDS AND FACE WASHED. ORAL CARE DONE. PATIENT COMBED HER HAIR. FRESH ICE WATER GIVEN. CALL BUTTON IN REACH. NO OTHER NEEDS AT THIS TIME.
--- NOTE | 2017-10-25 10:58 | NUR ---
PHARMACY IN ROOM WITH PATIENT. AWAITING CLEARANCE FROM PHARMACY TO PROCEED WITH DISCHARGE INSTRUCTIONS.
--- NOTE | 2017-10-25 11:30 | NUR ---
DISCUSSED DISCHARGE INSTRUCTIONS WITH PATIENT AND PATIENT'S DAUGHTER. PATIENT WELL DAUGHTER VERBALIZED UNDERSTANDING OF INSTRUCTIONS. PATIENT DENIES PAIN AT THIS TIME. DISCHARGE INSTRUCTIONS LEFT WITH DAUGHTER IN PATIENT'S ROOM. PATIENT WISHES TO EAT DINNER AND SPEAK WITH SISTER BALJINDER BEFORE BEING DISCHARGED.
--- NOTE | 2017-10-25 12:43 | NUR ---
PT SITTING IN CHAIR, WAITING FOR HER DAUGHTER TO COME AND TAKE HER HOME. WE HAD PLEASANT CONVERSATION, SHE REMINISCED ABOUT HER . PT DID RECYCLE OCCASIONALLY, WITH SOME MILD CONFUSION. DAUGHTER CAME AND SAID SHE IS MUCH CLEARER TODAY THAN YESTERDAY. PT WOULD LIKE TO SEE VANDANA GALE, I LET HER KNOW. EXTENDED A BLESSING WILL FOLLOW NEEDED
--- NOTE | 2017-10-25 14:15 | NUR ---
FAXED CHART NOTES TO [facility], INCLUDING FACE SHEET, ORDERS, H AND P, OP NOTE, PROG NOTE, DC NOTE AND PACKET, RECIEVED FAX CONFIRMATION OF THIS.
== END 2017-10-25 12:45 | disposition home or self-care (01) ==
LOC: DS 05:55 → DSVR 05:55 → MS 05:55 → EDSTATUS 06:45 → MS 06:45 → DSVR 09:25 → MS 09:25
PROVIDERS: ADMIT Specialist
PROC: 3E0T3BZ Introduction of Anesthetic Agent into Peripheral Nerves and Plexi, Percutaneous Approach (ICD-10-PCS; 2017-10-24)
PROC: 0RRJ0J6 Replacement of Right Shoulder Joint with Synthetic Substitute, Humeral Surface, Open Approach (ICD-10-PCS; principal; 2017-10-24 06:45)
DX: M19.011 Primary osteoarthritis, right shoulder (principal); G89.18 Other acute postprocedural pain; I10 Essential (primary) hypertension; E78.5 Hyperlipidemia, unspecified; M81.0 Age-related osteoporosis without current pathological fracture; J84.10 Pulmonary fibrosis, unspecified; G89.29 Other chronic pain; E11.9 Type 2 diabetes mellitus without complications; E87.1 Hypo-osmolality and hyponatremia; K21.9 Gastro-esophageal reflux disease without esophagitis; J84.112 Idiopathic pulmonary fibrosis; Z85.43 Personal history of malignant neoplasm of ovary; Z79.82 Long term (current) use of aspirin; Z79.83 Long term (current) use of bisphosphonates; Z79.899 Other long term (current) drug therapy; Z88.5 Allergy status to narcotic agent; Z88.0 Allergy status to penicillin; Z88.8 Allergy status to other drugs, medicaments and biological substances
CPT/HCPCS: 36415; 64415; 76942; 80048; 80053; 82247; 82465; 83615; 84100; 84478; 84550; 85025; 94762; 96374; 96376; 97163; 97165; C1776; G0378; J0330; J0690; J0735; J1100; J1885; J2405; J2704; J2765; J3010; J7120